=== PATIENT | female | born 1935 | race Caucasian/White ===

== ENCOUNTER 2016-12-20 08:48 | Emergency (ER) | payer OTHER ==
[~2016-12-20] VITALS: Ht 157.5 cm; Wt 71.0 kg
[~2016-12-20 08:48] MED LIST: CIPRO500 MG PO; PERCOCET 5/31 TABLET PO; PRILOSEC40 MG PO
[2016-12-20 10:05] LABS: MCH 29.1 PG (29.0-34.0); MCHC 32.9 G/DL (30.0-36.0); MCV 88.4 FL (83-99); MEAN PLAT.VOLUME 12.6 uM^3 (9.5-12.4); PLATELET COUNT 164 K/uL (156-360); RBC DIS.WIDTH-CV 13.1 % (11.8-14.6); RBC DIS.WIDTH-SD 41.8 % (39-53); RED BLOOD COUNT 5.09 M/uL (3.80-5.20); WHITE BLOOD COUNT 8.2 K/uL (4.1-10.2)
[2016-12-20 10:17] LABS: CHLORIDE 108 mEq/L (99-109); POTASSIUM 4.4 mEq/L (3.7-5.4); SODIUM 142 mEq/L (136-147)
[2016-12-20 10:18] LABS: GLUCOSE 103 mg/dL (70-99)
[2016-12-20 10:20] LABS: ANION GAP 9 MEQ/L (2-14)
[2016-12-20 10:22] LABS: GFR ESTIMATE (CALCULATED) > 59 mL/min/
[2016-12-20 10:23] LABS: UREA NITROGEN (BUN) 25 mg/dL (9-23)
[2016-12-20 10:44] LABS: TROP-I INTERPRETATION NEGATIVE; TROPONIN-I < 0.01 ng/mL (0.0-0.30)
[2016-12-20] MEDS ORDERED: PREDNISONE50 MG PO (11:41)
[2016-12-20] MEDS ORDERED: VALTREX1000 MG PO (11:41)
[2016-12-20 12:12] VITALS: BP 135/69
== END 2016-12-20 12:13 | disposition home or self-care (01) ==
LOC: EME 08:48
PROVIDERS: Emergency Medicine
DX: J06.9 Acute upper respiratory infection, unspecified (principal); G51.0 Bell's palsy; E78.5 Hyperlipidemia, unspecified; R05 Cough; R29.810 Facial weakness; R47.81 Slurred speech; R42 Dizziness and giddiness
CPT/HCPCS: 70450; 71010; 80048; 84484; 85027; 93005; 99281; 99285